=== PATIENT | female | born 1975 | race African-American/Black ===

== ENCOUNTER 2024-01-31 01:16 | Observation (INO) | payer OTHER ==
[2024-01-31] VITALS (11 sets, daily range): BP systolic 143–160; BP diastolic 68–106; PULSE 89–117; RESP 18–25; TEMP 97.6–99.6; O2SAT 98–100
[~2024-01-31] VITALS: Ht 167.6 cm; Wt 96.8 kg
[2024-01-31 01:49] LABS: BASOPHILS % 0.2 % (0.0-1.0); HEMATOCRIT 46.1 % (34.2-44.1); HEMOGLOBIN 15.7 g/dL (12.0-16.0); LYMPHOCYTES # (AUTO) 0.9 (1.0-3.2); LYMPHOCYTES % 7.2 % (18.0-39.1); MEAN CORPUSCULAR HEMOGLOBIN 31.7 pg (28-32); MEAN CORPUSCULAR HGB CONC 34.1 g/dL (31-35); MEAN CORPUSCULAR VOLUME 93.1 fL (81-99); MONOCYTES # (AUTO) 0.2 (0.2-0.8); MONOCYTES % 1.3 % (4.4-11.3); NEUTROPHILS # (AUTO) 11.4 (2.1-6.9); NEUTROPHILS % 90.9 % (38.7-80.0); PLATELET COUNT 312 x10e3/uL (140-360); RED BLOOD COUNT 4.95 x10e6/uL (3.6-5.1); RED CELL DISTRIBUTION WIDTH 11.8 % (11.7-14.4); WHITE BLOOD COUNT 12.49 x10e3/uL (4.8-10.8)
[2024-01-31] MEDS: SODIUM CHLORIDE 0.9% 1000ML 1,000 ML IV ONE ×2 (01:49→03:33)
[2024-01-31] MEDS: HALOPERIDOL LACTATE 5 MG/ML VIAL IV ONE (01:49)
[2024-01-31] MEDS: ONDANSETRON HCL INJ 2MG/ML 2ML 2 MG/ML VIAL IV STA (01:49)
[2024-01-31 02:15] LABS: ALBUMIN 4.2 g/dL (3.5-5.0); ALBUMIN/GLOBULIN RATIO 0.9 (0.8-2.0); ANION GAP 24.2 mmol/L (8-16); BILIRUBIN,TOTAL 0.7 mg/dL (0.2-1.2); CALCIUM 10.4 mg/dL (8.4-10.2); CREATININE, SERUM 1.02 mg/dL (0.57-1.11); POTASSIUM 4.2 mmol/L (3.5-5.1); TOTAL PROTEIN 8.9 g/dL (6.5-8.1)
[2024-01-31 02:21] LABS: TROPONIN I 0.003 ng/mL (0-0.300)
[2024-01-31] MEDS ORDERED: IOPAMIDOL 370 MG/ML 100 ML INFUS..BTL INJ ONE (02:23)
[2024-01-31 03:23] LABS: ABG PCO2 31 mmHg (35-45); ABG PO2 86 mmHg (80-105)
[2024-01-31 03:24] LABS: ABG HCO3 19 mmol/L (22-26); ABG TCO2 20
[2024-01-31] MEDS: ACETAMINOPHEN 325 MG TAB PO ONE (05:13)
[2024-01-31 05:18] LABS: CREATININE, SERUM 0.82 mg/dL (0.57-1.11)
[2024-01-31 05:22] LABS: CALCIUM 8.6 mg/dL (8.4-10.2)
[2024-01-31] MEDS ORDERED: DEXTROSE 50% SYRINGE 50 ML IV PRN (05:30)
[2024-01-31] MEDS ORDERED: Morphine 4mg INJECTION 4 MG/ML INJ IV PRN (05:30)
[2024-01-31] MEDS ORDERED: ONDANSETRON HCL INJ 2MG/ML 2ML 2 MG/ML VIAL IV PRN (05:30)
[2024-01-31] MEDS ORDERED: ACETAMINOPHEN 325 MG TAB PO PRN (05:30)
[2024-01-31] MEDS: SODIUM CHLORIDE 0.9% 1000ML 1,000 ML IV SCH (06:10)
[2024-01-31] MEDS: INSULIN REGULAR, HUMAN 100 UNIT/1 ML SQ SCH ×2 (06:25→12:29)
[2024-01-31] MEDS ORDERED: DOCUSATE SODIUM 100 MG CAP PO PRN (06:30)
[2024-01-31] MEDS ORDERED: MAGNESIUM/ALUMINUM/SIMETHICONE 30 ML UDC PO PRN (06:30)
[2024-01-31] MEDS ORDERED: MELATONIN 3 MG TAB PO PRN (06:30)
[2024-01-31] MEDS ORDERED: GUAIFENESIN/DEXTROMETHORPHAN LIQD 5 ML UDC PO PRN (06:30)
[2024-01-31 07:47] LABS: ANION GAP 16.7 mmol/L (8-16); CALCIUM 8.9 mg/dL (8.4-10.2); CHOL/HDL RATIO 6.2 (3.0-3.6); CREATININE, SERUM 0.88 mg/dL (0.57-1.11); MAGNESIUM 1.6 MG/DL (1.3-2.1); PHOSPHORUS 3.5 MG/DL (2.3-4.7); POTASSIUM 3.7 mmol/L (3.5-5.1)
[2024-01-31 07:54] LABS: TROPONIN I 0.008 ng/mL (0-0.300)
[2024-01-31 08:05] LABS: AMPHETAMINES SCREEN,URINE NEGATIVE (NEGATIVE); BENZODIAZEPINES SCREEN,URINE NEGATIVE (NEGATIVE); COCAINE SCREEN,URINE NEGATIVE (NEGATIVE); METHADONE SCREEN, URINE NEGATIVE (NEGATIVE); OPIATES SCREEN,URINE POSITIVE (NEGATIVE); PHENCYCLIDINE SCREEN,URINE NEGATIVE (NEGATIVE)
[2024-01-31 08:06] LABS: CANNABINOIDS SCREEN,URINE POSITIVE (NEGATIVE)
[2024-01-31] MEDS: HYDRALAZINE HCL 20 MG/ML VIAL IV PRN (09:24)
[2024-01-31] MEDS: MULTIVITAMINS/MINERALS TAB PO SCH (09:24)
[2024-01-31] MEDS ORDERED: LANTUS 3ML100 UNITS/ SQ (10:08)
[2024-01-31] MEDS ORDERED: NOVOLOG100 UNIT/1 SC (10:08)
[2024-01-31] MEDS ORDERED: LYRICA100 MG PO (10:08)
[2024-01-31] MEDS ORDERED: CYCLOBENZAPRINE5 MG PO (10:08)
[2024-01-31 10:49] LABS: THYROID STIMULATING HORMONE 0.524 uIU/mL (0.350-4.940)
[2024-01-31] MEDS ORDERED: MELOXICAM7.5 MG PO (13:04)
[2024-01-31] MEDS ORDERED: LISINOPRIL10 MG PO (13:04)
[2024-01-31] MEDS ORDERED: VITAMIN D250 MC1 PO (13:04)
[2024-01-31] MEDS ORDERED: LIPITOR20 MG PO (13:04)
[2024-01-31] MEDS: INSULIN GLARGINE 100 UNITS/ML VIAL SQ ONE (16:11)
[2024-01-31] MEDS: ENOXAPARIN SOD INJ 40 MG/0.4 ML SYR SC SCH (16:34)
[2024-01-31] MEDS: DEXTROSE 5%/0.45% SOD CHL 1,000 ML IV SCH (16:34)
[2024-01-31] MEDS: INSULIN LISPRO 100 UNIT/1 ML 3ML VIAL SQ SCH ×2 (16:37→16:38)
[2024-01-31] MEDS: CYCLOBENZAPRINE HCL 10 MG TAB PO PRN (17:34)
[2024-01-31] MEDS: ATORVASTATIN 40 MG TAB PO SCH (20:15)
[2024-01-31] MEDS: PREGABALIN 50 MG CAP PO SCH (20:15)
[2024-01-31] MEDS ORDERED: INSULIN GLARGINE 100 UNITS/ML VIAL SQ SCH (21:00)
[2024-01-31] MEDS: INSULIN GLARGINE 100 UNITS/ML VIAL SQ SCH (21:26)
[2024-02-01 01:28] VITALS: PULSE 88; RESP 18; O2SAT 98
[2024-02-01 07:33] LABS: ALBUMIN 3.1 g/dL (3.5-5.0); ANION GAP 13.4 mmol/L (8-16); BILIRUBIN,TOTAL 0.6 mg/dL (0.2-1.2); CALCIUM 8.9 mg/dL (8.4-10.2); CREATININE, SERUM 0.82 mg/dL (0.57-1.11); TOTAL PROTEIN 6.3 g/dL (6.5-8.1)
[2024-02-01 07:36] LABS: POTASSIUM 3.4 mmol/L (3.5-5.1)
[2024-02-01] MEDS: Morphine 2mg Syringe 2 MG/ML SYR IV PRN (07:37)
[2024-02-01 07:53] LABS: ABG HCO3 19 mmol/L (22-26); ABG PCO2 31 mmHg (35-45); ABG PO2 86 mmHg (80-105); ABG TCO2 20
[2024-02-01 08:10] LABS: TROPONIN I 0.009 ng/mL (0-0.300)
[2024-02-01 08:23] VITALS: BP 135/95; PULSE 128; RESP 22; TEMP 98.2; O2SAT 100
[2024-02-01 08:25] VITALS: BP 135/95; PULSE 128; RESP 22; TEMP 98.2; O2SAT 100
[2024-02-01] MEDS: LISINOPRIL 20 MG TAB PO SCH (08:41)
[2024-02-01 12:23] VITALS: BP 106/71; PULSE 103; RESP 18; TEMP 98.2; O2SAT 100
[2024-02-01 12:42] LABS: BASOPHILS # (AUTO) 0.1 (0.0-0.1); BASOPHILS % 0.6 % (0.0-1.0); EOSINOPHILS # (AUTO) 0.1 (0.0-0.4); EOSINOPHILS % 1.4 % (0.0-6.0); HEMATOCRIT 43.3 % (34.2-44.1); HEMOGLOBIN 14.5 g/dL (12.0-16.0); LYMPHOCYTES # (AUTO) 3.3 (1.0-3.2); LYMPHOCYTES % 39.5 % (18.0-39.1); MEAN CORPUSCULAR HEMOGLOBIN 31.8 pg (28-32); MEAN CORPUSCULAR HGB CONC 33.5 g/dL (31-35); MONOCYTES # (AUTO) 0.5 (0.2-0.8); MONOCYTES % 6.3 % (4.4-11.3); NEUTROPHILS # (AUTO) 4.4 (2.1-6.9); NEUTROPHILS % 52.1 % (38.7-80.0); PLATELET COUNT 241 x10e3/uL (140-360); RED BLOOD COUNT 4.56 x10e6/uL (3.6-5.1); RED CELL DISTRIBUTION WIDTH 12.7 % (11.7-14.4); WHITE BLOOD COUNT 8.46 x10e3/uL (4.8-10.8)
[2024-02-01] MEDS ORDERED: ONDANSETRON HCL4 MG PO (13:43)
[2024-02-01] MEDS ORDERED: NOVOLOG100 UNIT/1 SC (13:43)
[2024-02-01] MEDS ORDERED: PEPCID20 MG PO (13:43)
[2024-02-01] MEDS ORDERED: LANTUS 3ML100 UNITS/ SQ (13:43)
[2024-02-01] MEDS ORDERED: CIPRO500 MG PO (13:45)
[2024-02-01] MEDS ORDERED: METRONIDAZOLE500 MG PO (13:45)
[2024-02-01] MEDS: TRAMADOL HCL 50 MG TAB PO PRN (15:38)
[2024-02-01] MEDS ORDERED: INSULIN GLARGINE 100 UNITS/ML VIAL SQ SCH (21:00)
== END 2024-02-01 15:55 | disposition home or self-care (01) ==
LOC: ER 01:23 → ERHOLD 05:33 → MED/SURG3 06:31
PROVIDERS: ADMIT Internal Medicine Critical Care Medicine; ATTEND Internal Medicine Critical Care Medicine
DX: E11.10 Type 2 diabetes mellitus with ketoacidosis without coma (principal); Z79.4 Long term (current) use of insulin; I16.0 Hypertensive urgency; I10 Essential (primary) hypertension; R11.2 Nausea with vomiting, unspecified; J45.909 Unspecified asthma, uncomplicated; E66.9 Obesity, unspecified; Z68.34 Body mass index [BMI] 34.0-34.9, adult; F41.9 Anxiety disorder, unspecified; F12.90 Cannabis use, unspecified, uncomplicated; Z79.899 Other long term (current) drug therapy
CPT/HCPCS: 36415; 36600; 71045; 74177; 80048; 80053; 80061; 80307; 82550; 82805; 82948; 83036; 83690; 83735; 84100; 84439; 84443; 84484; 84702; 85025; 93005; 94799; 99284; G0378; J0360; J1630; J1650; J1815; J2270; J2405; J2470; J2543; J7030; Q9967

== ENCOUNTER 2024-03-12 20:19 | Emergency (ER) | payer OTHER ==
[~2024-03-12] VITALS: Ht 167.6 cm; Wt 96.6 kg
[~2024-03-12 20:19] MED LIST: CIPRO500 MG PO; CYCLOBENZAPRINE5 MG PO; LANTUS 3ML100 UNITS/ SQ; LIPITOR20 MG PO; LISINOPRIL10 MG PO; LYRICA100 MG PO; MELOXICAM7.5 MG PO; METRONIDAZOLE500 MG PO; NOVOLOG100 UNIT/1 SC; ONDANSETRON HCL4 MG PO; PEPCID20 MG PO; VITAMIN D250 MC1 PO
[2024-03-12 20:22] VITALS: PULSE 86; RESP 22; TEMP 98.1
[2024-03-12] MEDS: HALOPERIDOL LACTATE 5 MG/ML VIAL IV STA (20:58)
[2024-03-12] MEDS: SODIUM CHLORIDE 0.9% 1000ML 1,000 ML IV STA ×2 (20:59)
[2024-03-12 21:16] LABS: BASOPHILS % 0.3 % (0.0-1.0); EOSINOPHILS # (AUTO) 0.1 (0.0-0.4); EOSINOPHILS % 0.6 % (0.0-6.0); HEMOGLOBIN 15.6 g/dL (12.0-16.0); LYMPHOCYTES # (AUTO) 2.6 (1.0-3.2); LYMPHOCYTES % 24.8 % (18.0-39.1); MEAN CORPUSCULAR HEMOGLOBIN 32.3 pg (28-32); MEAN CORPUSCULAR HGB CONC 33.9 g/dL (31-35); MEAN CORPUSCULAR VOLUME 95.2 fL (81-99); MONOCYTES # (AUTO) 0.4 (0.2-0.8); MONOCYTES % 4.3 % (4.4-11.3); NEUTROPHILS # (AUTO) 7.1 (2.1-6.9); NEUTROPHILS % 69.4 % (38.7-80.0); PLATELET COUNT 266 x10e3/uL (140-360); RED BLOOD COUNT 4.83 x10e6/uL (3.6-5.1); RED CELL DISTRIBUTION WIDTH 11.4 % (11.7-14.4); WHITE BLOOD COUNT 10.27 x10e3/uL (4.8-10.8)
[2024-03-12] MEDS ORDERED: DICYCLOMINE HCL 20 MG/2 ML VIAL IM ONE (21:35)
[2024-03-12 21:41] LABS: ALBUMIN 4.4 g/dL (3.5-5.0); ALBUMIN/GLOBULIN RATIO 0.9 (0.8-2.0); ANION GAP 23.9 mmol/L (8-16); BILIRUBIN,TOTAL 0.7 mg/dL (0.2-1.2); CREATININE, SERUM 1.04 mg/dL (0.57-1.11); POTASSIUM 3.9 mmol/L (3.5-5.1); TOTAL PROTEIN 9.1 g/dL (6.5-8.1)
[2024-03-12 21:43] LABS: CALCIUM 10.8 mg/dL (8.4-10.2)
[2024-03-12] MEDS: DICYCLOMINE HCL 20 MG/2 ML VIAL IM ONE (21:47)
[2024-03-12] MEDS: Morphine 4mg INJECTION 4 MG/ML INJ IV STA (22:46)
[2024-03-12] MEDS ORDERED: IOPAMIDOL 370 MG/ML 100 ML INFUS..BTL INJ ONE (23:45)
[2024-03-13] MEDS ORDERED: INSULIN REGULAR, HUMAN 100 UNIT/1 ML ONE (00:24)
[2024-03-13] MEDS: INSULIN REGULAR, HUMAN 100 UNIT/1 ML SQ ONE (01:28)
[2024-03-13] MEDS: DEXTROSE 50% SYRINGE 50 ML IV STA (01:50)
[2024-03-13] MEDS ORDERED: DICYCLOMINE HCL10 MG PO (01:54)
[2024-03-13] MEDS ORDERED: PROTONIX20 MG PO (02:00)
[2024-03-13] MEDS ORDERED: ONDANSETRON ODT4 MG PO (02:00)
[2024-03-13] MEDS ORDERED: DICYCLOMINE HCL 20 MG TAB ONE (02:16)
[2024-03-13] MEDS ORDERED: ONDANSETRON HCL 4 MG ORAL DISINTEGRATING TAB ONE (02:17)
[2024-03-13] MEDS: ONDANSETRON HCL 4 MG ORAL DISINTEGRATING TAB PO ONE (02:35)
[2024-03-13] MEDS: DICYCLOMINE HCL 20 MG TAB PO ONE (02:36)
[2024-03-13 02:42] VITALS: BP 149/63; PULSE 71; RESP 18; TEMP 98.2; O2SAT 98
== END 2024-03-13 02:30 | disposition home or self-care (01) ==
LOC: ER 20:28
DX: R11.2 Nausea with vomiting, unspecified (principal); R10.13 Epigastric pain; E11.65 Type 2 diabetes mellitus with hyperglycemia; I10 Essential (primary) hypertension; J45.909 Unspecified asthma, uncomplicated; F41.9 Anxiety disorder, unspecified; E66.9 Obesity, unspecified
CPT/HCPCS: 36415; 74177; 80053; 82948; 83690; 84702; 85025; 99284; J1630; J2270; J7030; Q0162; Q9967